=== PATIENT | male | born 1945 | race Caucasian/White ===

== ENCOUNTER 2017-09-06 06:10 | Day surgery (SDC) | payer OTHER ==
[~2017-09-06 06:10] MED LIST: ASA81 MG; PLAVIX75 MG; VYTORIN 10-20 M1 TAB; [UNRECOGNIZED DRUG - OTHER]
== END 2017-09-06 10:35 | disposition home or self-care (01) ==
LOC: AMB-ENDOS 06:10
DX: D12.2 Benign neoplasm of ascending colon (principal); K57.30 Diverticulosis of large intestine without perforation or abscess without bleeding; K64.2 Third degree hemorrhoids